=== PATIENT | female | born 1935 | race African-American/Black ===

== ENCOUNTER 2016-10-19 11:51 | Emergency (ER) | payer MEDICARE ==
[~2016-10-19] VITALS: Ht 157.5 cm; Wt 52.2 kg
[2016-10-19] MEDS ORDERED: HYDROCODON-ACE1 EAC7 PO (12:06)
[2016-10-19] MEDS ORDERED: LASIX20 MG PO (12:07)
[2016-10-19] MEDS ORDERED: AMBIEN10 MG PO (12:10)
[2016-10-19] MEDS ORDERED: TRADJENTA5 MG PO (12:10)
[2016-10-19] MEDS ORDERED: ALPRAZOLAM0.5 MG PO (12:11)
== END 2016-10-19 15:18 | disposition home or self-care (01) ==
LOC: SED 11:51
DX: T78.40XA Allergy, unspecified, initial encounter (principal); Z79.899 Other long term (current) drug therapy
CPT/HCPCS: 99283